=== PATIENT | male | born 1990 | race Hispanic/Latino ===

== ENCOUNTER 2018-07-24 23:29 | Emergency (ER) | payer OTHER ==
--- NOTE | 2018-07-25 00:23 | Emergency Department Report ---
<PASQUALE SON - Last Filed: 07/25/18 02:04> ED General Adult HPI - General Chief complaint: Overdose Stated complaint: POSS OD Time Seen by Provider: 07/25/18 00:09 Source: patient, EMS (ems notes not available at time of chart dictation), RN notes reviewed Mode of arrival: Stretcher Limitations: No Limitations - History of Present Illness Initial comments: This is a 27-year-old gentleman. The patient is not known to this provider previously. He reports no chronic medical conditions, with the exception of sporadic, intermittent, recreational heroin consumption for recreational reasons. The patient is brought to the hospital by emergency medical services after presumed heroin overdose. The patient was reportedly found in a car, unresponsive, after injecting himself with an unknown quantity of heroin. There was no trauma, and apparently, 911 was contacted, and the patient was given 2 mg of Narcan intravenously, which improved his symptoms. The patient denies physical pain at this time. He denies homicidality and suicidality. He denies hallucinations. He has no interest in detox at this time, because he reports that he uses very infrequently. He reports that he lives with a roommate in [place]. -: This evening Severity scale (0 -10): 0 Consistency: now resolved Improves with: medication Worsens with: none Associated Symptoms: denies other symptoms - Related Data Previous Rx's Medication Instructions Recorded Last Taken Type Naloxone HCl [Narcan Nasal [place]] 4 mg NS Q1HR PRN #1 spray 07/25/18 Unknown Rx Allergies Allergy/AdvReac Type Severity Reaction Status Date / Time No Known Allergies Allergy Unverified 07/24/18 23:58 ED Review of Systems Constitutional: denies: fever, malaise Eyes: denies: eye discharge, vision change ENT: denies: epistaxis Respiratory: denies: cough Cardiovascular: denies: chest pain Gastrointestinal: denies: abdominal pain, nausea, vomiting Musculoskeletal: denies: back pain Skin: denies: lesions Neurological: denies: confusion Psychiatric: denies: visual hallucinations, homicidal thoughts, suicidal thoughts ED Past Medical Hx - Past Medical History Previous Medical History?: No - Social History Smoking Status: Current Every Day Smoker Substance Use Type: Heroin - Medications Home Medications: Home Medications Medication Instructions Recorded Confirmed Last Taken Type Naloxone HCl [Narcan Nasal [place]] 4 mg NS Q1HR PRN #1 spray 07/25/18 Unknown Rx ED Physical Exam - General Limitations: No Limitations General appearance: alert, in no apparent distress - Head Head exam: Present: atraumatic, normocephalic - Eye Eye exam: Present: normal appearance, PERRL, EOMI, other (visual acuity intact to finger counting, color perception, reading at a close distance). Absent: nystagmus - ENT ENT exam: Present: normal exam, normal orophraynx, mucous membranes moist, normal external ear exam - Neck Neck exam: Present: normal inspection, full ROM. Absent: tenderness, meningismus - Respiratory Respiratory exam: Present: normal lung sounds bilaterally. Absent: respiratory distress - Cardiovascular Cardiovascular Exam: Present: regular rate, normal rhythm, normal heart sounds. Absent: bradycardia, tachycardia, irregular rhythm, systolic murmur, diastolic murmur, rubs, gallop - GI/Abdominal GI/Abdominal exam: Present: soft. Absent: distended, tenderness, guarding, rebound, rigid, pulsatile mass - Rectal Rectal exam: Present: deferred - Extremities Exam Extremities exam: Present: normal inspection, full ROM, other (2+ pulses noted in the bilateral upper, lower extremities. Compartments soft. No long bony te nderness. The pelvis is stable.). Absent: pedal edema, joint swelling, calf tenderness - Back Exam Back exam: Present: normal inspection, full ROM. Absent: tenderness, CVA tenderness (R), paraspinal tenderness, vertebral tenderness - Neurological Exam Neurological exam: Present: alert, oriented X3, normal gait, other (Extraocular movements intact. Tongue midline. No facial droop. Facial sensation intact to light touch in the V1, V2, V3 distribution bilaterally. 5 and 5 strength in 4 extremities.. Sensation is intact to light touch in 4 extremities.). Absent: motor sensory deficit - Psychiatric Psychiatric exam: Absent: homicidal ideation, suicidal ideation - Skin Skin exam: Present: warm, dry, intact, normal color. Absent: rash ED Course - Reevaluation(s) Reevaluation #1: 07/25/18 00:58 Differential diagnosis, including not limited to: Recreational, accidental heroin overdose, now resolved Assessment and plan: 27-year-old gentleman, pleasant, calm and cooperative, status post presumed recreational accidental overdose on heroin, not homicidal or suicidal, no complaints at this time, does not meet 1013 criteria. Extensive discussion had with patient regarding recommendations to abstain from opioid consumption. The patient reports that he is not a frequent or chronic user, and he is therefore not interested in detox therapy. We will observe the patient for a few hours, I have recommended screening acetaminophen and salicylate level, which the patient is amenable to. He is walking around the ER, clinically sober, GCS of 15, with unremarkable physical examination. Reevaluation #2: 07/25/18 02:04 Patient resting comfortably, and in no acute distress. Serum toxicology studies pending at this time. We will observe patient for an additional 90 minutes. care transferred to Dr Montoya to follow up on serum aspirin and tylenol levels, and if no abnormalities or clinical decompensation, discharge after 4 hour per iod of observation ED Medical Decision Making - Lab Data Vital Signs 07/24/18 07/24/18 07/25/18 23:48 23:50 00:00 Temperature 97.5 F L Pulse Rate 106 H 93 H 91 H Respiratory 19 15 12 Rate Blood Pressure 111/60 Blood Pressure 121/59 [Left] O2 Sat by Pulse 97 96 Oximetry 07/25/18 07/25/18 00:15 00:53 Temperature Pulse Rate 89 Respiratory 12 Rate Blood Pressure 109/61 111/60 Blood Pressure [Left] O2 Sat by Pulse 96 Oximetry - EKG Data -: EKG Interpreted by Me EKG shows normal: sinus rhythm, axis, intervals, QRS complexes, ST-T waves Rate: normal - EKG Data When compared to previous EKG there are: no significant change, previous EKG unavailable Interpretation: normal EKG ED Disposition Clinical Impression: Opiate abuse, episodic Disposition: DC-01 TO HOME OR SELFCARE Is pt being admited?: No Does the pt Need Aspirin: No Condition: Stable Instructions: Narcotic Abuse (ED) Additional Instructions: I recommend the patient abstain from using recreational opioids. I recommend patient not use any recreational or illicit drugs, in any form of ingestion. Long-term consumption of IV drugs carries the risk of addiction, respiratory depression, , paralysis, loss of quality of life, infection, blood-borne infection. If patient is insistent on consuming narcotics, opioids recreationally, do not inject alone, and always have Narcan available to reverse accidental overdose. Follow-up with a primary care doctor or medical support specialist within the next 2 weeks. Return to the emergency room right away with it, worsens or different symptoms. Prescriptions: Naloxone HCl [Narcan Nasal [place]] 4 mg NS Q1HR PRN #1 spray PRN Reason: Overdose Referrals: [facility] [Provider Group] - 3-5 Days [facility] [Outside] - 3-5 Days <LUISA MONTOYA - Last Filed: 07/25/18 03:39> ED Review of Systems ROS: Stated complaint: POSS OD Other details as noted in HPI ED Course Vital Signs 07/24/18 07/24/18 07/25/18 23:48 23:50 00:00 Temperature 97.5 F L Pulse Rate 106 H 93 H 91 H Respiratory 19 15 12 Rate Blood Pressure 111/60 Blood Pressure 121/59 [Left] O2 Sat by Pulse 97 96 Oximetry 07/25/18 07/25/18 07/25/18 00:15 00:53 01:30 Temperature Pulse Rate 89 Respiratory 12 Rate Blood Pressure 109/61 111/60 97/36 Blood Pressure [Left] O2 Sat by Pulse 96 Oximetry 07/25/18 07/25/18 07/25/18 01:46 02:46 03:30 Temperature Pulse Rate 98 H 83 82 Respiratory 11 L 19 Rate Blood Pressure 91/52 99/48 98/66 Blood Pressure [Left] O2 Sat by Pulse 96 97 Oximetry - Reevaluation(s) Reevaluation #3: 07/25/18 03:38 Patient a and O 4. Patient asymptomatic. Critical care attestation.: If time is entered above; I have spent that time in minutes in the direct care of this critically ill patient, excluding procedure time. ED Disposition Is pt being admited?: No Does the pt Need Aspirin: No Time of Disposition: 03:39
[2018-07-25] MEDS ORDERED: NACL 0.9% 1000 ML 2,000 ML IV ONE (02:04)
[2018-07-25 03:35] VITALS: BP 98/66
== END 2018-07-25 03:45 | disposition home or self-care (01) ==
LOC: ED 23:29
DX: T40.1X1A Poisoning by heroin, accidental (unintentional), initial encounter (principal); F17.200 Nicotine dependence, unspecified, uncomplicated; Y92.89 Other specified places as the place of occurrence of the external cause
CPT/HCPCS: 36415; 93005; 93010; 99284; G0480; J7030; 80320